=== PATIENT | female | born 1965 | race Caucasian/White ===

== ENCOUNTER 2019-02-09 09:57 | Inpatient (IN) | payer BC ==
[2019-02-05 11:01] LABS: Basophils # (auto) 0 uL; Basophils % (auto) 0.2 % (0.0-2.0); Eosinophils # (auto) 0.1 uL; White Blood Cell 4.9 10^3/uL (4.4-10.8)
[2019-02-05 11:03] LABS: Eosinophils % (auto) 1.5 % (0.0-7.0); Hematocrit 36.1 % (36.0-46.0); Hemoglobin 11.3 g/dL (12.2-16.2); Lymphocytes # (auto) 1.5 uL; Lymphocytes % (auto) 31.8 % (10.0-50.0); Mean Corpuscular Hemoglobin 22.6 pg (28.0-32.0); Mean Corpuscular Hgb Conc. 31.3 g/dL (32.0-36.0); Mean Corpuscular Volume 72.2 fL (80.0-100.0); Monocytes # (auto) 0.4 uL; Monocytes % (auto) 7.2 % (0.0-12.0); Neutrophils # (auto) 2.9 uL; Neutrophils % (auto) 59.3 % (37.0-80.0); Platelet Count (auto) 241 10^3/uL (140-450); Red Cell Distribution Width 18.1 % (11.8-14.3)
[2019-02-05 11:16] LABS: INR 0.89 (0.9-1.15); Prothrombin Time 9.6 sec (9.27-12.13)
[2019-02-05 11:18] LABS: Albumin 3.7 g/dL (3.4-5.0); Potassium 3.4 mmol/L (3.5-5.1)
[2019-02-05 11:21] LABS: BUN/Creatinine Ratio 22.7; Bilirubin, Total 0.6 mg/dL (0.2-1.0); Total Protein 7.8 g/dL (6.4-8.2)
[2019-02-05 11:34] LABS: Urine Amorphous Crystal FEW /hpf (None Seen); Urine Bacteria NONE SEEN /hpf (None Seen); Urine Blood Negative /uL (Negative); Urine Specific Gravity 1.033 (1.001-1.035); Urine WBC 5 /hpf (0 - 5)
[~2019-02-09] VITALS: Ht 165.1 cm; Wt 78.9 kg
[~2019-02-09 09:57] MED LIST: EMPA1TAB PO; GLIP-116 PO; LEVO150T10 PO; METF-372 PO; SEMA2INJ SC
[2019-02-09] MEDS ORDERED: ceFOXitin 2GM/100ML 100 ML IV ONE (10:32)
[2019-02-09] MEDS ORDERED: BUPIVACAINE 0.25% INJ 50ML VIAL ONE (12:22)
[2019-02-09] MEDS ORDERED: LIDOCAINE W/ EPINEPHRINE 1% 20ML VIAL ONE (12:22)
[2019-02-09] MEDS ORDERED: MIDAZOLAM HCL 1MG/1ML-2 ML VIAL ONE (12:52)
[2019-02-09] MEDS ORDERED: fentaNYL CITRATE 5 ML ONE (12:52)
[2019-02-09] MEDS ORDERED: fentaNYL CITRATE 100 MCG/2 ML VL ONE (12:52)
[2019-02-09] MEDS ORDERED: DEXAMETHASONE SOD PHOS 10MG/1ML VIAL INJ ONE (12:54)
[2019-02-09] MEDS ORDERED: MEPERIDINE HCL (50 MG/ML) 1 ML VIAL IV ONE (12:54)
[2019-02-09] MEDS ORDERED: PROPOFOL 10 MG/ML 20 ML IV ONE (13:42)
[2019-02-09] MEDS ORDERED: diphenhdrAMINE HCL 50 MG/1 ML VL IV PRN (14:30)
[2019-02-09] MEDS ORDERED: ONDANSETRON HCL 4 MG/2 ML VIAL IV PRN (14:30)
[2019-02-09] MEDS ORDERED: DEXTROSE (50%) 50ML SYRG IV PRN (14:30)
[2019-02-09] MEDS ORDERED: SEMAGLUTIDE 1 MG SC SCH (14:30)
[2019-02-09] MEDS: CEFOXITIN SODIUM 1 GM in D5W 5% 50 ML IV SCH ×2 (15:00→23:00)
[2019-02-09] MEDS ORDERED: ONDANSETRON HCL 4 MG/2 ML VIAL IV ONE (15:15)
[2019-02-09] MEDS ORDERED: LABETALOL HCL 5 MG/ML 4ML SYRINGE IV PRN (15:15)
[2019-02-09] MEDS ORDERED: MIDAZOLAM HCL 1MG/1ML-2 ML VIAL IV PRN (15:15)
[2019-02-09] MEDS ORDERED: ePHEDrine SULFATE 50 MG/ML AMP IV PRN (15:15)
[2019-02-09] MEDS ORDERED: KETOROLAC TROMETH 30 MG/ML 1ML VIAL IV ONE (15:15)
[2019-02-09] MEDS ORDERED: ACCU-CHEK COMFORT CURVE STRIP VI ONE (15:15)
[2019-02-09] MEDS ORDERED: HYDROmorphone HCL 2 MG/ML VL IV PRN (15:15)
[2019-02-09] MEDS ORDERED: MORPHINE SULFATE 4 MG/ML SYR/VIAL IV PRN (15:15)
[2019-02-09] MEDS ORDERED: hydrALAZINE HCL 20 MG/ML VL IV PRN (15:15)
[2019-02-09] MEDS ORDERED: MORPHINE SULFATE 4 MG/ML SYR/VIAL IV ONE (16:00)
[2019-02-09] MEDS: HYDROmorphone HCL 2 MG/ML VL IV PRN ×2 (16:13→17:35)
[2019-02-09 17:24] VITALS: BP 136/77
[2019-02-09] MEDS: ACCU-CHEK COMFORT CURVE STRIP VI SCH ×2 (17:33→22:00)
[2019-02-09] MEDS: InsuLIN REG 1unit/0.01ml Soln (100units/ml) SC SCH (17:34)
[2019-02-09] MEDS: metFORMIN HYDROCHLORIDE 500 MG TAB PO SCH (17:45)
[2019-02-09 18:15] VITALS: BP 136/77
--- NOTE | 2019-02-09 19:15 | NUR ---
Opening Shift Note Assumed care of patient, awake and alert with family at bedside. No S/S of distress/SOB or pain. Instructed on POC and to call for assistance PRN, will continue to monitor for changes Q1hr and PRN.
--- NOTE | 2019-02-09 19:16 | NUR ---
ENDORSED CARE TO NOC RN MARIBEL
[2019-02-09] MEDS: ACETAMINOPHEN/CODEINE#3 (300/30mg) TAB PO PRN ×2 (19:45→21:45)
[2019-02-09] MEDS ORDERED: InsuLIN REG 1unit/0.01ml Soln (100units/ml) SC SCH (22:00)
[2019-02-09] MEDS: SOD CHL 0.45% 1,000 ML IV SCH (22:22)
[2019-02-09 22:34] VITALS: BP 113/70
[2019-02-10] MEDS: HYDROmorphone HCL 2 MG/ML VL IV PRN ×3 (03:40→13:27)
[2019-02-10] MEDS: SOD CHL 0.45% 1,000 ML IV SCH (05:15)
[2019-02-10] MEDS: ACETAMINOPHEN/CODEINE#3 (300/30mg) TAB PO PRN (05:32)
[2019-02-10 05:36] VITALS: BP 112/70
[2019-02-10 06:05] LABS: BUN/Creatinine Ratio 11.4; Calcium 8.3 mg/dL (8.5-10.1); Potassium 3.9 mmol/L (3.5-5.1)
[2019-02-10] MEDS: InsuLIN REG 1unit/0.01ml Soln (100units/ml) SC SCH ×2 (06:34→11:30)
[2019-02-10] MEDS: ACCU-CHEK COMFORT CURVE STRIP VI SCH ×2 (06:34→14:18)
--- NOTE | 2019-02-10 06:45 | NUR ---
Turpin catheter discontinued Order to discontinue turpin catheter. Turpin discontinued using clean technique following deflation of balloon. Patient tolerated well with no complaints of pain. Will continue to monitor.
[2019-02-10] MEDS ORDERED: glipiZIDE 5 MG TAB PO SCH (07:00)
[2019-02-10] MEDS ORDERED: LEVOTHYROXINE SODIUM 50 MCG TAB PO SCH (07:00)
[2019-02-10] MEDS: CEFOXITIN SODIUM 1 GM in D5W 5% 50 ML IV SCH (07:29)
[2019-02-10] MEDS: metFORMIN HYDROCHLORIDE 500 MG TAB PO SCH (08:00)
[2019-02-10 08:19] VITALS: BP 110/73
[2019-02-10 12:27] VITALS: BP 120/70
== END 2019-02-10 15:03 | disposition home or self-care (01) | DRG 658 ==
LOC: SUR 09:57 → WEST WING 17:13
PROVIDERS: ADMIT Internal Medicine; ATTEND Urology
PROC: 07BC4ZZ Excision of Pelvis Lymphatic, Percutaneous Endoscopic Approach (ICD-10-PCS; 2019-02-09)
PROC: 8E0W4CZ Robotic Assisted Procedure of Trunk Region, Percutaneous Endoscopic Approach (ICD-10-PCS; 2019-02-09)
PROC: 0TT04ZZ Resection of Right Kidney, Percutaneous Endoscopic Approach (ICD-10-PCS; principal; 2019-02-09 12:54)
DX: D41.01 Neoplasm of uncertain behavior of right kidney (principal); E11.9 Type 2 diabetes mellitus without complications; Z98.51 Tubal ligation status; Z83.3 Family history of diabetes mellitus; Z82.49 Family history of ischemic heart disease and other diseases of the circulatory system
CPT/HCPCS: 36415; 80048; 80053; 81001; 82962; 85025; 85610; 85730; 86850; 86900; 86901; 87086; A6257; G0378; J0694; J1100; J1815; J2250; J2405; J2704; J3490; J7060